=== PATIENT | female | born 1995 | race Caucasian/White ===

== ENCOUNTER 2020-05-26 18:52 | Emergency (ER) | payer BC ==
[2020-05-26] MEDS ORDERED: Sodium Chloride 0.9% 10 ML Syringe FLUSH PRN (19:48)
[2020-05-26] MEDS ORDERED: Ketorolac 30 MG/ML SDV IVPUSH ONE (19:49)
--- NOTE | 2020-05-26 19:55 | EDM.PDOC ---
ED HPI GENERAL MEDICAL PROBLEM - General Chief Complaint: Headache Stated Complaint: THROWING UP, FEELING CONFUSED,2 TO 3 DAYS Time Seen by Provider: 05/26/20 19:35 Source of Information: Reports: Patient, Family, RN. Denies: Old Records History Limitations: Reports: Other (no old records, normally goes to [facility]) - History of Present Illness INITIAL COMMENTS - FREE TEXT/NARRATIVE: 25 yo female comes along with her mother today for a frontal RICH for several days. It was very mild until about 2 days ago. No definite fever. No stiff neck. No nausea. No self tx. No pHx of RICH's. No head injury. Says she been forgetful at times lately. No nasal drainage. No light sensitivity. Onset: Gradual Duration: Day(s):, Getting Worse Location: Reports: Head Quality: Reports: Ache Severity: Moderate Improves with: Reports: None Worsens with: Reports: Other (time) Context: Reports: Other (See HPI) Associated Symptoms: Reports: Confusion (mild, intermittent), Headaches. Denies: Diaphoresis, Fever/Chills, Nausea/Vomiting Treatments BASE MANAGER: Reports: Other (see below) (none) - Related Data Allergies Allergy/AdvReac Type Severity Reaction Status Date / Time No Known Allergies Allergy Verified 05/26/20 19:50 Home Meds: Home Meds Amoxicillin [Amoxil] 875 mg PO Q12HR #14 tab 05/26/20 [Rx] Cannabidiol (Cbd) Extract [CBD Oil] 0.5 ml PO BID 05/26/20 [History] Cholecalciferol (Vitamin D3) [Vitamin D3] 5,000 units PO DAILY 05/26/20 [History] norgestimate-ethinyl estradioL [Jefferson-L[place] 28 Tablet] 1 tab PO DAILY 05/26/20 [History] ED ROS GENERAL - Review of Systems Review Of Systems: See Below Constitutional: Reports: Malaise HEENT: Reports: No Symptoms Respiratory: Reports: No Symptoms Cardiovascular: Reports: No Symptoms GI/Abdominal: Reports: No Symptoms Musculoskeletal: Reports: No Symptoms Skin: Reports: No Symptoms Neurological: Reports: Confusion (mild, intermittent(more forgetful)), Headache, Tingling (around mouth and fingers at times). Denies: Dizziness, Seizure, Syncope, Trouble Speaking, Difficulty Walking, Change in Speech, Gait Disturbance Psychiatric: Reports: No Symptoms - Physical Exam Exam: See Below Exam Limited By: No Limitations General Appearance: Alert, WD/WN, No Apparent Distress Eye Exam: Bilateral Eye: EOMI, Normal Inspection, PERRL Ears: Normal External Exam, Normal Canal, Hearing Grossly Normal, Normal TMs Nose: Normal Inspection, No Blood Throat/Mouth: Normal Inspection, Normal Lips, Normal Oropharynx, Normal Voice, No Airway Compromise Head Exam: Atraumatic, Normocephalic Neck: Normal Inspection Respiratory/Chest: No Respiratory Distress, Lungs Clear, Normal Breath Sounds, No Accessory Muscle Use Cardiovascular: Regular Rate, Rhythm, No Edema GI/Abdominal: Normal Bowel Sounds, Soft, Non-Tender Neuro Exam (Abbreviated): Alert, Oriented, CN II-XII Intact, Normal Cognition, N o Motor/Sensory Deficits. No: Confused Back Exam: Normal Inspection Extremities: Normal Inspection, Normal Range of Motion, Non-Tender, No Pedal Edema Psychiatric: Normal Affect, Normal Mood Skin Exam: Warm, Dry, Intact, Normal Color, No Rash Course - Vital Signs Last Recorded V/S: Last Vital Signs Temp 35.5 C L 05/26/20 20:28 Pulse 82 05/26/20 20:28 Resp 16 05/26/20 20:28 BP 120/81 05/26/20 20:28 Pulse Ox 99 05/26/20 20:28 - Orders/Labs/Meds Orders: Active Orders 24 hr Category Date Time Status Sodium Chloride 0.9% [Saline Flush] Med 05/26/20 19:48 Active 10 ml FLUSH ASDIRECTED PRN Saline Lock Insert [OM.PC] Routine Oth 05/26/20 19:48 Ordered Medication Orders Sodium Chloride (Sodium Chloride 0.9% 10 Ml Syringe) 10 ml FLUSH ASDIRECTED PRN PRN Reason: Keep Vein Open Last Admin: 05/26/20 20:18 Dose: 10 ml Documented by: HAILEE Labs: Laboratory Tests 05/26/20 05/26/20 05/26/20 Range/Units 19:49 20:06 20:06 WBC 7.2 (4.5-11.0) K/uL RBC 4.45 (3.30-5.50) M/uL Hgb 13.3 (12.0-15.0) g/dL Hct 40.4 (36.0-48.0) % MCV 91 (80-98) fL MCH 30 (27-31) pg MCHC 33 (32-36) % Plt Count 342 (150-400) K/uL Sodium 144 (140-148) mmol/L Potassium 3.4 L (3.6-5.2) mmol/L Chloride 105 (100-108) mmol/L Carbon Dioxide 25 (21-32) mmol/L Anion Gap 17.4 H (5.0-14.0) mmol/L BUN 8 (7-18) mg/dL Creatinine 0.5 L (0.6-1.0) mg/dL Est Cr Clr Drug Dosing 137.22 mL/min Estimated GFR (MDRD) > 60 (>60) Glucose 94 (74-106) mg/dL Calcium 8.9 (8.5-10.1) mg/dL C-Reactive Protein 0.46 H (0.0-0.3) mg/dL Urine Color Yellow (YELLOW) Urine Appearance Slightly cloudy A (CLEAR) Urine pH 6.5 (5.0-8.0) Ur Specific [place] 1.020 (1.008-1.030) Urine Protein Negative (NEGATIVE) mg/dL Urine Glucose (UA) Negative (NEGATIVE) mg/dL Urine Ketones Negative (NEGATIVE) mg/dL Urine Occult Blood Trace-intact H (NEGATIVE) Urine Nitrite Negative (NEGATIVE) Urine Bilirubin Negative (NEGATIVE) Urine Urobilinogen 0.2 (0.2-1.0) EU/dL Ur Leukocyte Esterase Negative (NEGATIVE) Urine RBC 0-5 (0-5) Urine WBC 0-5 (0-5) Ur Epithelial Cells Few Amorphous Sediment Not seen Urine Bacteria Few Urine Mucus Not seen Urine HCG, Qual 05/26/20 Range/Units 20:55 WBC (4.5-11.0) K/uL RBC (3.30-5.50) M/uL Hgb (12.0-15.0) g/dL Hct (36.0-48.0) % MCV (80-98) fL MCH (27-31) pg MCHC (32-36) % Plt Count (150-400) K/uL Sodium (140-148) mmol/L Potassium (3.6-5.2) mmol/L Chloride (100-108) mmol/L Carbon Dioxide (21-32) mmol/L Anion Gap (5.0-14.0) mmol/L BUN (7-18) mg/dL Creatinine (0.6-1.0) mg/dL Est Cr Clr Drug Dosing mL/min Estimated GFR (MDRD) (>60) Glucose (74-106) mg/dL Calcium (8.5-10.1) mg/dL C-Reactive Protein (0.0-0.3) mg/dL Urine Color (YELLOW) Urine Appearance (CLEAR) Urine pH (5.0-8.0) Ur Specific [place] (1.008-1.030) Urine Protein (NEGATIVE) mg/dL Urine Glucose (UA) (NEGATIVE) mg/dL Urine Ketones (NEGATIVE) mg/dL Urine Occult Blood (NEGATIVE) Urine Nitrite (NEGATIVE) Urine Bilirubin (NEGATIVE) Urine Urobilinogen (0.2-1.0) EU/dL Ur Leukocyte Esterase (NEGATIVE) Urine RBC (0-5) Urine WBC (0-5) Ur Epithelial Cells Amorphous Sediment Urine Bacteria Urine Mucus Urine HCG, Qual Negative Meds: Medications Generic Name Dose Route Start Last Admin Trade Name Freneela PRN Reason Stop Dose Admin Sodium Chloride 10 ml 05/26/20 19:48 05/26/20 20:18 Sodium Chloride 0.9% 10 Ml Syringe FLUSH 10 ml ASDIRECTED PRN Administration Keep Vein Open Discontinued Medications Generic Name Dose Route Start Last Admin Trade Name Freq PRN Reason Stop Dose Admin Diphenhydramine HCl 25 mg 05/26/20 20:08 05/26/20 20:35 Diphenhydramine 50 Mg/Ml Sdv IVPUSH 05/26/20 20:09 25 mg ONETIME ONE Administration Ketorolac Tromethamine 30 mg 05/26/20 19:49 05/26/20 20:15 Ketorolac 30 Mg/Ml Sdv IVPUSH 05/26/20 19:50 30 mg ONETIME ONE Administration Metoclopramide HCl 10 mg 05/26/20 20:07 05/26/20 20:15 Metoclopramide 10 Mg/2 Ml Sdv IV 05/26/20 20:08 10 mg NOW STA Administration - Radiology Interpretation Free Text/Narrative:: Head CT scan- Impression: No acute intracranial process. Mild left-sided sinus disease. Please note that all CT scans at this facility use dose modulation, iterative reconstruction, and/or weight-based dosing when appropriate to reduce radiation dose to as low as reasonably achievable. Dictated by Angelo Mena MD @ May 26 2020 9:30PM CT Results Date: 05/26/20 CT Results Time: 21:40 Departure - Departure Time of Disposition: 21:50 Disposition: Home, Self-Care 01 Condition: Good Clinical Impression: Hypokalemia Headache Qualifiers: Headache type: unspecified Headache chronicity pattern: acute headache Intractability: not intractable Qualified Code(s): R51.9 - Headache, unspecified - Discharge Information *PRESCRIPTION DRUG MONITORING PROGRAM REVIEWED*: Not Applicable *COPY OF PRESCRIPTION DRUG MONITORING REPORT IN PATIENT JOSUE: Not Applicable Instructions: Sinus Headache Referrals: PCP,None [Primary Care Provider] - Forms: ED Department Discharge Additional Instructions: Eat more potassium rich foods, yogurt and fresh fruit. Take magnesium 1000 mg at bedtime or with your evening meal for headache suppression. Drink enough fluids so that your urine is light yellow in color. Try either acetaminophen extra strength or Excedrin Migraine for symptom relief. Follow up with your provider if not improving. Take amoxicillin every 12 hrs with food until gone. Sepsis Event Note (ED) - Focused Exam Vital Signs: Vital Signs Temp Pulse Resp BP Pulse Ox 05/26/20 20:28 35.5 C L 82 16 120/81 99 05/26/20 19:11 35.5 C L 82 16 120/81 99 - My Orders Last 24 Hours: My Active Orders 05/26/20 19:48 Sodium Chloride 0.9% [Saline Flush] 10 ml FLUSH ASDIRECTED PRN Saline Lock Insert [OM.PC] Routine - Assessment/Plan Last 24 Hours: My Active Orders 05/26/20 19:48 Sodium Chloride 0.9% [Saline Flush] 10 ml FLUSH ASDIRECTED PRN Saline Lock Insert [OM.PC] Routine
[2020-05-26] MEDS ORDERED: Metoclopramide 10 MG/2 ML SDV IV STA (20:07)
[2020-05-26] MEDS ORDERED: diphenhydrAMINE 50 MG/ML SDV IVPUSH ONE (20:08)
--- NOTE | 2020-05-26 21:35 | CRLCT ---
Indication: PROLONGED HEADACHE ASSOCIATED WITH MILD INTERMITT CONFUSION Comparison: None available. Technique: Multiple sequential axial images from the foramen magnum to the vertex were obtained without IV contrast. Findings: No evidence of mass effect, midline shift, or extra-axial fluid collection. No evidence of space-occupying lesion or intracranial hemorrhage. No evidence of cortical-based area of infarction. Ventricles and sulci are appropriate for patient age. Basal cisterns are patent. Visualized portions of the orbits, and mastoid air cells are unremarkable. Mild sinus mucosal thickening within the anterior left ethmoid air cells and left frontal sinus. Impression: No acute intracranial process. Mild left-sided sinus disease. Please note that all CT scans at this facility use dose modulation, iterative reconstruction, and/or weight-based dosing when appropriate to reduce radiation dose to as low as reasonably achievable. Dictated by Angelo Mena MD @ May 26 2020 9:30PM (Electronically Signed)
[2020-05-26] MEDS ORDERED: Amoxicillin 875 MG Tab PO ONE (21:40)
== END 2020-05-26 21:59 | disposition home or self-care (01) ==
LOC: JP.ED 18:52
DX: R51.9 Headache, unspecified (principal); E87.6 Hypokalemia
CPT/HCPCS: 36415; 70450; 80048; 81001; 81025; 85027; 86140; 96374; 96375; 99283; 99285; A9270; J1200; J1885; J2765